=== PATIENT | female | born 1985 | race Asian ===

== ENCOUNTER 2018-06-14 14:28 | Emergency (ER) | payer OTHER ==
[~2018-06-14] VITALS: Ht 157.5 cm; Wt 68.0 kg
[2018-06-14] MEDS ORDERED: IV NS 0.9% 1,000 ML BAG IV ONE (15:30)
--- NOTE | 2018-06-14 15:30 | NUR ---
Resting comfortably in bed-conversing with family member. Awaiting update and disposition. VSS Status quo EKG rythm strips w/o any ectopy noted NO acute changes
[2018-06-14 15:31] LABS: BASOPHILS % (AUTO) 0.3 % (0.0-2.0); EOSINOPHILS % (AUTO) 3.1 % (0.0-6.0); HEMATOCRIT 43 % (33-45); HEMOGLOBIN 13.9 g/dL (11.5-14.8); LYMPHOCYTES # (AUTO) 1.8 /CMM (0.8-4.8); LYMPHOCYTES % (AUTO) 28.5 % (20.0-44.0); MEAN CORPUSCULAR HGB CONC 33 g/dl (31.0-36.0); MEAN CORPUSCULAR VOLUME 94 fL (82-100); MONOCYTES # (AUTO) 0.4 /CMM (0.1-1.30); MONOCYTES % (AUTO) 6.6 % (2.0-12.0); NEUTROPHILS # (AUTO) 3.9 /CMM (1.8-8.9); NEUTROPHILS % (AUTO) 61.5 % (43.0-81.0); PLATELET COUNT (AUTO) 267 /CMM (150-450); RDW COEFFICIENT OF VARIATION 13.5 (11.5-15.0); RED BLOOD CELL COUNT(AUTO) 4.54 MIL/uL (4.0-5.2); WHITE BLOOD COUNT (AUTO) 6.3 K/uL (4.3-11.0)
[2018-06-14 15:52] LABS: ALANINE AMINOTRANSFERASE 25 U/L (12-78); ALBUMIN 4.3 g/dL (3.4-5.0); ALKALINE PHOSPHATASE 74 U/L (46-116); ASPARTATE AMINOTRANSFERASE 12 U/L (15-37); BILIRUBIN,DIRECT 0.1 mg/dL (0.0-0.2); BILIRUBIN,TOTAL 0.4 mg/dL (0.2-1.0); CALCIUM, SERUM 9.2 mg/dL (8.5-10.1); CARBON DIOXIDE 28 mmol/L (21-32); CHLORIDE 104 mmol/L (98-107); CREATININE 0.7 mg/dL (0.6-1.3); GLUCOSE 77 mg/dL (74-106); POTASSIUM 3.5 mmol/L (3.5-5.1); SODIUM SERUM 140 mmol/L (136-145); TOTAL PROTEIN, SERUM 8.4 g/dL (6.4-8.2); UREA NITROGEN, BLOOD 10 mg/dL (7-18)
[2018-06-14 15:54] LABS: TROPONIN I < 0.017 ng/mL (0.00-0.056)
[2018-06-14 17:11] VITALS: BP 108/62
--- NOTE | 2018-06-14 17:13 | NUR ---
Pt states "feeling better" NO acute distress. Updated by MD for discharge-ACI given-verbalized understanding. Home ambulatory-stable
== END 2018-06-14 17:12 | disposition home or self-care (01) ==
LOC: ER 14:33
DX: R00.2 Palpitations (principal); R42 Dizziness and giddiness; I49.8 Other specified cardiac arrhythmias
CPT/HCPCS: 36415; 80048-TC; 80076-TC; 84484-TC; 85025-TC; 85378-TC; A4606; J7030; Z7610